=== PATIENT | male | born 1980 | race African-American/Black ===

== ENCOUNTER 2018-07-13 05:27 | Emergency (ER) | payer SELFPAY ==
[~2018-07-13] VITALS: Ht 167.6 cm; Wt 79.0 kg
[2018-07-13] MEDS ORDERED: ACETAMINOPHEN 325MG TABLET PO ONE (06:45)
[2018-07-13] MEDS ORDERED: TETRACAINE 0.5% OPHTH DROPS 4ML OP ONE (06:45)
[2018-07-13] MEDS ORDERED: FLUORESCEIN SODIUM 1MG/STRIP OP ONE (06:45)
[2018-07-13] MEDS ORDERED: LIDOCAINE HCL/PF 1% 10 MG/ML 5ML VIAL IJ ONE (06:45)
[2018-07-13] MEDS ORDERED: CEFAZOLIN 1000MG PREMIX 50 ML IV ONE (08:45)
[2018-07-13 08:54] LABS: HEMATOCRIT. 42.4 % (42.0-52.0); HEMOGLOBIN. 14.2 g/dL (14.0-18.0); MEAN CORPUSCULAR HEMOGLOBIN 31.4 pg (28.0-32.0); MEAN CORPUSCULAR VOLUME 93.4 fL (80.0-94.0); MEAN PLATELET VOLUME 7.9 fl (7.4-10.4); PLATELET 239 x1000/uL (130-400); RED BLOOD CELL COUNT 4.54 mill/uL (4.7-6.1); RED CELL DISTRIBUTION WIDTH 13.6 % (11.6-14.6)
[2018-07-13 09:01] LABS: CHLORIDE 104 mEq/L (98-107)
[2018-07-13 09:05] LABS: INR 1.1; PROTHROMBIN TIME 10.7 sec (9.1-11.1)
[2018-07-13 09:35] LABS: PLATELET ESTIMATE NORMAL
[2018-07-13 10:28] VITALS: BP 115/66
== END 2018-07-13 10:36 | disposition short-term general hospital (02) ==
LOC: ER 07:35
DX: S02.82XA Fracture of other specified skull and facial bones, left side, initial encounter for closed fracture (principal); S05.32XA Ocular laceration without prolapse or loss of intraocular tissue, left eye, initial encounter; F17.200 Nicotine dependence, unspecified, uncomplicated; F12.10 Cannabis abuse, uncomplicated; Y08.89XA Assault by other specified means, initial encounter; Y93.89 Activity, other specified; Y92.89 Other specified places as the place of occurrence of the external cause; Y99.8 Other external cause status
CPT/HCPCS: 36415; 70450; 70486; 80053; 85025; 85610; 96365; 99291; J0690; J3490; X7700; Z7610